=== PATIENT | female | born 1955 | race Two or more races ===

== ENCOUNTER 2024-09-19 15:23 | Inpatient (IN) | payer MEDICARE, MEDICAID ==
[2024-09-19] VITALS (31 sets, daily range): BP systolic 63–106; BP diastolic 30–73; PULSE 94–159; RESP 13–32; TEMP 36.3–36.3624; O2SAT 95–100
[~2024-09-19] VITALS: Ht 157.5 cm; Wt 82.6 kg
[2024-09-19] MEDS: SODIUM CHLORIDE 0.9% (SEPSIS BOLUS) IV ONE (15:54)
[2024-09-19 16:02] LABS: BASOPHILS % 0.1 % (0.0-2.0); EOSINOPHILS % 0.1 % (0.0-5.0); HEMATOCRIT. 30.1 % (36.0-48.0); HEMOGLOBIN. 9.8 g/dL (12.0-16.0); LYMPHOCYTES % 4.9 % (20.0-50.0); MEAN PLATELET VOLUME 9.1 fl (7.4-10.4); MONOCYTES % 4.0 % (2.0-8.0); NEUTROPHILS % 90.9 % (40.0-76.0); RED BLOOD CELL COUNT 2.75 mill/uL (4.2-5.4); RED CELL DISTRIBUTION WIDTH 15.3 % (11.6-14.6)
[2024-09-19] MEDS: CEFTRIAXONE 1GM/50ML 50 ML IV ONE (16:07)
[2024-09-19 16:11] LABS: INR 1.2
[2024-09-19 16:18] LABS: ASPARTATE AMINOTRANSFERASE 10 IU/L (<34)
[2024-09-19 16:19] LABS: BILIRUBIN DIRECT 0.2 mg/dL (<=3.0); BILIRUBIN TOTAL 0.4 mg/dL (0.1-1.0); PROTEIN TOTAL 6.4 g/dL (6.0-8.3)
[2024-09-19 16:26] LABS: CREATININE 15.1 mg/dL (0.6-1.0)
[2024-09-19 16:27] LABS: TROPONIN I HIGH SENSITIVITY 412 ng/L (3.0-34)
[2024-09-19 16:29] LABS: UREA NITROGEN BLOOD 159 mg/dL (9-23)
[2024-09-19] MEDS: NOREPINEPHRINE 8MG/250ML PMX 250 ML IV ONE (17:34)
[2024-09-19] MEDS ORDERED: NOREPINEPHRINE 8MG/250ML PMX 250 ML IV PRN ×2 (17:45→20:15)
[2024-09-19] MEDS ORDERED: CLOPIDOGREL 75MG TABLET PO SCH (17:45)
[2024-09-19] MEDS ORDERED: ONDANSETRON HCL 4MG/2ML INJ IV PRN (18:00)
[2024-09-19] MEDS ORDERED: HYDROCODONE/ACETAMINOPHEN 5/325MG TABLET PO PRN (18:00)
[2024-09-19] MEDS ORDERED: ENOXAPARIN 40MG/0.4ML SYR SUBCUT SCH (18:00)
[2024-09-19] MEDS ORDERED: DEXTROSE 50% WATER 50ML SYRINGE IV PRN (18:00)
[2024-09-19] MEDS ORDERED: NALOXONE HCL 0.4MG/ML VIAL IV PRN ×2 (18:30→23:00)
[2024-09-19 18:38] LABS: TROPONIN I HIGH SENSITIVITY 338 ng/L (3.0-34)
[2024-09-19 18:39] LABS: CLARITY URINE CLOUDY (CLEAR); COLOR URINE YELLOW (YELLOW)
[2024-09-19 18:40] LABS: GLUCOSE URINE 1+ (NEGATIVE); KETONES URINE TRACE (NEGATIVE); PH URINE 5.0 (4.5-8.0); PROTEIN URINE 2+ (NEGATIVE); SPECIFIC GRAVITY URINE 1.022 (1.005-1.030)
[2024-09-19 18:41] LABS: LEUKOCYTE ESTERASE URINE 2+ (NEGATIVE); NITRITE URINE NEGATIVE (NEGATIVE); OCCULT BLOOD URINE 2+ (NEGATIVE); UROBILINOGEN URINE 0.2 E.U./dL (0.2-1.0)
[2024-09-19] MEDS: SODIUM BICARBONATE 8.4% 50MEQ/50ML SYR IV NR (19:05)
[2024-09-19] MEDS: ASPIRIN 81MG TABLET PO SCH (19:05)
[2024-09-19] MEDS: PIPERACILLIN/TAZO 3.375G/50ML 50 ML IV NR (19:06)
[2024-09-19] MEDS: SODIUM BICARBONATE 100 MEQ in SODIUM CHLORIDE 0.45% 900 ML IV SCH (19:06)
[2024-09-19 19:09] LABS: BACTERIA URINE TRACE; SQUAMOUS EPITHELIAL CELL URINE FEW /lpf (RARE/1+)
[2024-09-19] MEDS: PANTOPRAZOLE SODIUM 40 MG/VIAL IV SCH (19:15)
[2024-09-19] MEDS: SODIUM CHLORIDE 0.9% 1,000 ML IV SCH (20:29)
[2024-09-19] MEDS: NOREPINEPHRINE 8MG/250ML PMX 250 ML IV PRN (20:31)
[2024-09-19] MEDS: PHENYLEPHRINE 50MG/250ML PMX 250 ML IV PRN (20:41)
[2024-09-19] MEDS: BLOOD SUGAR DIAGNOSTIC STRIP TEST SCH (21:00)
[2024-09-19] MEDS: ENOXAPARIN 60MG/0.6ML SYR SUBCUT SCH (21:11)
[2024-09-19] MEDS: HYDROCORTISONE SOD SUCCINATE 100 MG/2 ML VIAL IV SCH (21:11)
[2024-09-19] MEDS: ATORVASTATIN CALCIUM 40MG TABLET PO SCH (21:11)
[2024-09-19] MEDS: INSULIN LISPRO 100 UNITS/ML SUBCUT SCH (21:25)
[2024-09-19 22:06] LABS: BG BASE EXCESS -20.5 mmol/L (-2.0-3.0); BG CARBOXYHEMOGLOBIN 0.7 % (0.5-1.5); BG DEOXYHEMOGLOBIN 5.1 % (0.0-5.0); BG FRACTION INSPIRED OXYGEN 21; BG HCO3 ACT 6.4 mmol/L (21.0-28.0); BG METHEMOGLOBIN 0.2 % (0.5-1.5); BG OXYGEN SATURATION 94.9 % (94.0-98.0); BG OXYHEMOGLOBIN 94.0 % (94.0-98.0); BG PCO2 18.7 mmHg (32.0-45.0); BG PH 7.153 (7.350-7.450); BG PO2 91.6 mmHg (83.0-108.0); BG SAMPLE SITE LEFT RADIAL; BG TOTAL HEMOGLOBIN 10.4 g/dL (12.0-16.0); BG VENT MODE ROOM AIR
[2024-09-19] MEDS: HYDROMORPHONE HCL/PF 1MG/ML INJ IV PRN (23:09)
[2024-09-20] VITALS (112 sets, daily range): BP systolic 65–169; BP diastolic 32–96; PULSE 92–145; RESP 0–36; TEMP 36.2–39.7; O2SAT 81–100
[2024-09-20] MEDS: NOREPINEPHRINE 32 MG in DEXT 5% WATER 218 ML IV PRN (00:14)
[2024-09-20 00:56] LABS: BG BASE EXCESS -23.0 mmol/L (-2.0-3.0); BG CARBOXYHEMOGLOBIN 0.3 % (0.5-1.5); BG DEOXYHEMOGLOBIN 0.5 % (0.0-5.0); BG FRACTION INSPIRED OXYGEN 100; BG HCO3 ACT 7.9 mmol/L (21.0-28.0); BG METHEMOGLOBIN 0.1 % (0.5-1.5); BG OXYGEN SATURATION 99.5 % (94.0-98.0); BG OXYHEMOGLOBIN 99.1 % (94.0-98.0); BG PCO2 37.0 mmHg (32.0-45.0); BG PEEP (cmH2O) 5.0 cmH2O; BG PH 6.949 (7.350-7.450); BG PO2 293.4 mmHg (83.0-108.0); BG SAMPLE SITE RIGHT RADIAL; BG TIDAL VOLUME(mL) 450.0 mL; BG TOTAL HEMOGLOBIN 10.0 g/dL (12.0-16.0); BG VENT MODE VENT - AC; BG VENT RATE 16.0 set
[2024-09-20] MEDS: EPINEPHRINE 10 MG in SODIUM CHLORIDE 0.9% 240 ML IV PRN (01:27)
[2024-09-20] MEDS: AMIODARONE 150MG/100ML D5W 100 ML IV NR (02:23)
[2024-09-20] MEDS: AMIODARONE 360MG/200ML 200 ML IV SCH (02:33)
[2024-09-20] MEDS: SODIUM BICARBONATE 8.4% 50MEQ/50ML SYR IV NR (02:39)
[2024-09-20] MEDS: CALCIUM GLUCONATE 1GM PREMIX 50 ML IV NR (02:39)
[2024-09-20] MEDS: SODIUM ZIRCONIUM CYCLOSILICATE 10GM/PACKET PO NR (02:40)
[2024-09-20] MEDS: INSULIN REGULAR (HUMULIN R) 1000UNITS/10ML VIAL IV NR (03:03)
[2024-09-20] MEDS: MAGNESIUM 1 G PREMIX 100 ML IV NR ×2 (03:31→04:41)
[2024-09-20 04:01] LABS: TROPONIN I HIGH SENSITIVITY 672 ng/L (3.0-34)
[2024-09-20] MEDS: DOPAMINE 400MG/250ML PREMIX 250 ML IV PRN (04:40)
[2024-09-20 06:18] LABS: HEMATOCRIT. 28.5 % (36.0-48.0); HEMOGLOBIN. 9.0 g/dL (12.0-16.0); MEAN PLATELET VOLUME 8.0 fl (7.4-10.4); RED BLOOD CELL COUNT 2.57 mill/uL (4.2-5.4); RED CELL DISTRIBUTION WIDTH 15.7 % (11.6-14.6)
[2024-09-20 06:38] LABS: CREATININE 11.3 mg/dL (0.6-1.0); TROPONIN I HIGH SENSITIVITY 1492.0 ng/L (3.0-34); UREA NITROGEN BLOOD 126.0 mg/dL (9-23)
[2024-09-20] MEDS: PHENYLEPHRINE 100 MG in DEXT 5% WATER 240 ML IV PRN (06:55)
[2024-09-20] MEDS: VASOPRESSIN 20 UNIT in SODIUM CHLORIDE 0.9% 99 ML IV PRN (06:55)
[2024-09-20 06:57] LABS: PLATELET 22 x1000/uL (130-400)
[2024-09-20] MEDS: EPINEPHRINE 20 MG in SODIUM CHLORIDE 0.9% 480 ML IV PRN (07:20)
[2024-09-20] MEDS: PIPERACILLIN/TAZO 3.375G/50ML 50 ML IV SCH (08:12)
[2024-09-20] MEDS ORDERED: CALCIUM GLUCONATE 1GM PREMIX 50 ML IV ONE (08:45)
[2024-09-20 08:52] LABS: BG BASE EXCESS -18.0 mmol/L (-2.0-3.0); BG CARBOXYHEMOGLOBIN 0.4 % (0.5-1.5); BG DEOXYHEMOGLOBIN 11.7 % (0.0-5.0); BG FRACTION INSPIRED OXYGEN 40; BG HCO3 ACT 10.0 mmol/L (21.0-28.0); BG METHEMOGLOBIN 0.1 % (0.5-1.5); BG OXYGEN SATURATION 88.2 % (94.0-98.0); BG OXYHEMOGLOBIN 87.8 % (94.0-98.0); BG PCO2 31.5 mmHg (32.0-45.0); BG PEEP (cmH2O) 5.0 cmH2O; BG PH 7.120 (7.350-7.450); BG PO2 68.6 mmHg (83.0-108.0); BG SAMPLE SITE LEFT RADIAL; BG TIDAL VOLUME(mL) 450.0 mL; BG TOTAL HEMOGLOBIN 9.5 g/dL (12.0-16.0); BG VENT MODE VENT - AC; BG VENT RATE 16.0 set
[2024-09-20] MEDS: IPRATROPIUM/ALBUTEROL 0.5-3(2.5)MG/3ML NEB NEB PRN (08:58)
[2024-09-20] MEDS ORDERED: CALCIUM CHLORIDE 1GM/10ML SYR IV SCH (09:00)
[2024-09-20] MEDS: SODIUM BICARBONATE 8.4% 50MEQ/50ML SYR IV SCH (09:02)
[2024-09-20] MEDS: DEXTROSE 50% WATER 50ML SYRINGE IV SCH (09:02)
[2024-09-20] MEDS: INSULIN REGULAR (HUMULIN R) 1000UNITS/10ML VIAL IV SCH (09:03)
[2024-09-20] MEDS: SODIUM POLYSTYRENE SULFONATE 15 G/60 ML BOT PO SCH (09:04)
[2024-09-20] MEDS: PROPOFOL 10MG/ML 100ML 100 ML IV SCH (09:49)
[2024-09-20] MEDS: CALCIUM GLUCONATE 1GM PREMIX 50 ML IV SCH (10:35)
[2024-09-20 10:36] LABS: CREATININE 10.8 mg/dL (0.6-1.0); UREA NITROGEN BLOOD 130.0 mg/dL (9-23)
[2024-09-20 11:56] LABS: BAND% 32.0 % (1.0-6.0); LYMPHOCYTES % MANUAL 8.0 % (20.0-60.0); METAMYELOCYTES % 6.0 % (0-0); MONOCYTES % MANUAL 9.0 % (2.0-8.0); MYELOCYTES % 1.0 % (0-0); NEUTROPHILS % MANUAL 44.0 % (45.0-75.0)
[2024-09-20 11:57] LABS: PLATELET ESTIMATE MARKEDLY DECREASED
[2024-09-20 12:27] LABS: PLATELET 47 x1000/uL (130-400)
[2024-09-20 13:35] LABS: TROPONIN I HIGH SENSITIVITY 5080 ng/L (3.0-34)
[2024-09-20 13:48] LABS: BG BASE EXCESS -14.4 mmol/L (-2.0-3.0); BG CARBOXYHEMOGLOBIN 0.6 % (0.5-1.5); BG DEOXYHEMOGLOBIN 6.7 % (0.0-5.0); BG FRACTION INSPIRED OXYGEN 60; BG HCO3 ACT 11.8 mmol/L (21.0-28.0); BG METHEMOGLOBIN 0.3 % (0.5-1.5); BG OXYGEN SATURATION 93.2 % (94.0-98.0); BG OXYHEMOGLOBIN 92.4 % (94.0-98.0); BG PCO2 28.6 mmHg (32.0-45.0); BG PEEP (cmH2O) 5.0 cmH2O; BG PH 7.234 (7.350-7.450); BG PO2 75.0 mmHg (83.0-108.0); BG SAMPLE SITE LEFT RADIAL; BG TIDAL VOLUME(mL) 450.0 mL; BG TOTAL HEMOGLOBIN 7.5 g/dL (12.0-16.0); BG VENT MODE VENT - AC; BG VENT RATE 28.0 set
[2024-09-20 15:54] LABS: UREA NITROGEN BLOOD 139.0 mg/dL (9-23)
[2024-09-20 15:55] LABS: CREATININE 10.2 mg/dL (0.6-1.0)
[2024-09-20 16:13] LABS: HEMATOCRIT. 21.8 % (36.0-48.0); HEMOGLOBIN. 7.4 g/dL (12.0-16.0); MEAN PLATELET VOLUME 7.7 fl (7.4-10.4); RED BLOOD CELL COUNT 2.08 mill/uL (4.2-5.4); RED CELL DISTRIBUTION WIDTH 14.5 % (11.6-14.6)
[2024-09-20 16:26] LABS: PLATELET 19 x1000/uL (130-400)
[2024-09-20] MEDS: VANCOMYCIN 1.25GM/250ML IV SCH (16:59)
[2024-09-20 17:21] LABS: BAND% 11.0 % (1.0-6.0); LYMPHOCYTES % MANUAL 12.0 % (20.0-60.0); MONOCYTES % MANUAL 4.0 % (2.0-8.0); NEUTROPHILS % MANUAL 73.0 % (45.0-75.0); PLATELET ESTIMATE MARKEDLY DECREASED
[2024-09-20] MEDS ORDERED: ASPI-867 MT (18:18)
[2024-09-20] MEDS ORDERED: CARV6.2548 MT (18:20)
[2024-09-20] MEDS ORDERED: ATOR-2 MT (18:20)
[2024-09-20] MEDS ORDERED: FURO40TA5 MT (18:21)
[2024-09-20] MEDS ORDERED: LOSA25TA26 MT (18:22)
[2024-09-20] MEDS ORDERED: LEVO50TA8 MT (18:22)
[2024-09-20] MEDS ORDERED: METF500S9 PO (18:23)
[2024-09-20] MEDS ORDERED: NIAC500T25 MT (18:24)
[2024-09-20] MEDS ORDERED: OMEP20CA14 MT (18:24)
[2024-09-20] MEDS ORDERED: POTA8CAP20 MT (18:25)
[2024-09-20] MEDS ORDERED: EMPA10TA MT (18:26)
[2024-09-20] MEDS: ACETAMINOPHEN 325MG TABLET PO PRN (20:19)
[2024-09-20 20:30] LABS: TROPONIN I HIGH SENSITIVITY 18747 ng/L (3.0-34)
[2024-09-21] VITALS (123 sets, daily range): BP systolic 71–166; BP diastolic 37–106; PULSE 24–109; RESP 19–35; TEMP 36.6–37.33632; O2SAT 93–100
[2024-09-21 07:15] LABS: TRIGLYCERIDE 209.0 mg/dL (0-150)
[2024-09-21 07:26] LABS: LACTATE DEHYDROGENASE 1834.0 IU/L (120-246)
[2024-09-21 08:44] LABS: CREATININE 10.0 mg/dL (0.6-1.0); UREA NITROGEN BLOOD 134.0 mg/dL (9-23)
[2024-09-21 10:38] LABS: BG DEOXYHEMOGLOBIN 49.6 % (0.0-5.0)
[2024-09-21 10:57] LABS: MEAN PLATELET VOLUME 10.5 fl (7.4-10.4); RED BLOOD CELL COUNT 1.86 mill/uL (4.2-5.4); RED CELL DISTRIBUTION WIDTH 14.3 % (11.6-14.6)
[2024-09-21 11:01] LABS: HEMATOCRIT. 19.4 % (36.0-48.0); PLATELET 38 x1000/uL (130-400)
[2024-09-21 11:05] LABS: HEMOGLOBIN. 6.7 g/dL (12.0-16.0)
[2024-09-21] MEDS: FENTANYL 2500MCG/250ML PMX 250 ML IV PRN (11:09)
[2024-09-21 11:37] LABS: BAND% 32.0 % (1.0-6.0); LYMPHOCYTES % MANUAL 7.0 % (20.0-60.0); METAMYELOCYTES % 2.0 % (0-0); MONOCYTES % MANUAL 2.0 % (2.0-8.0); MYELOCYTES % 1.0 % (0-0); NEUTROPHILS % MANUAL 56.0 % (45.0-75.0); NUCLEATED RED BLOOD CELLS 1 /100 WBC; PLATELET ESTIMATE MARKEDLY DECREASED
[2024-09-21] MEDS: PROPOFOL 10MG/ML 100ML 100 ML IV PRN (11:56)
[2024-09-21 15:52] LABS: RED BLOOD CELL COUNT 2.32 mill/uL (4.2-5.4); RED CELL DISTRIBUTION WIDTH 16.6 % (11.6-14.6)
[2024-09-21 16:01] LABS: INR 1.4
[2024-09-21 16:03] LABS: PLATELET 32 x1000/uL (130-400)
[2024-09-22] VITALS (110 sets, daily range): BP systolic 76–154; BP diastolic 36–92; PULSE 64–94; RESP 0–29; TEMP 36.8–37.1; O2SAT 92–100
[2024-09-22 07:09] LABS: HEMATOCRIT. 23.4 % (36.0-48.0); MEAN PLATELET VOLUME 9.2 fl (7.4-10.4); RED BLOOD CELL COUNT 2.42 mill/uL (4.2-5.4); RED CELL DISTRIBUTION WIDTH 18.0 % (11.6-14.6)
[2024-09-22 07:33] LABS: TRIGLYCERIDE 398 mg/dL (0-150)
[2024-09-22 07:55] LABS: UREA NITROGEN BLOOD 117 mg/dL (9-23)
[2024-09-22 07:56] LABS: CREATININE 8.4 mg/dL (0.6-1.0); HEMOGLOBIN. 8.3 g/dL (12.0-16.0)
[2024-09-22 07:58] LABS: PLATELET 27 x1000/uL (130-400)
[2024-09-22 09:26] LABS: BG DEOXYHEMOGLOBIN 29.8 % (0.0-5.0)
[2024-09-22] MEDS: POTASSIUM CHLORIDE 20MEQ/PACKET PO SCH (09:58)
[2024-09-22] MEDS: KCL 20MEQ/100ML PREMIX 100 ML IV ONE (09:58)
[2024-09-22 11:01] LABS: BAND% 14.0 % (1.0-6.0); LYMPHOCYTES % MANUAL 4.0 % (20.0-60.0); MONOCYTES % MANUAL 3.0 % (2.0-8.0); NEUTROPHILS % MANUAL 79.0 % (45.0-75.0); PLATELET ESTIMATE MARKEDLY DECREASED
[2024-09-22] MEDS: KCL 20MEQ/100ML PREMIX 100 ML IV SCH ×2 (11:59→16:52)
[2024-09-22] MEDS: POTASSIUM CHLORIDE 30 MEQ in DEXT 5%/0.9% NACL 1,000 ML IV SCH (15:04)
[2024-09-22 16:20] LABS: CREATININE 7.5 mg/dL (0.6-1.0); UREA NITROGEN BLOOD 121.0 mg/dL (9-23)
[2024-09-22 21:11] LABS: RED BLOOD CELL COUNT 2.44 mill/uL (4.2-5.4); RED CELL DISTRIBUTION WIDTH 17.5 % (11.6-14.6)
[2024-09-22 21:18] LABS: PLATELET 27 x1000/uL (130-400)
[2024-09-22] MEDS: PROPOFOL 10MG/ML 100ML 100 ML IV PRN (23:53)
[2024-09-23] VITALS (95 sets, daily range): BP systolic 83–136; BP diastolic 44–94; PULSE 48–116; RESP 10–23; TEMP 36.8–37.2; O2SAT 92–100
[2024-09-23 01:33] LABS: CREATININE 7.2 mg/dL (0.6-1.0); UREA NITROGEN BLOOD 123.0 mg/dL (9-23)
[2024-09-23] MEDS ORDERED: CALCIUM CHLORIDE 1GM/10ML SYR IV ONE (02:00)
[2024-09-23] MEDS: WATER IV NR (02:45)
[2024-09-23] MEDS: DEXT 5% IV NR (02:45)
[2024-09-23] MEDS: CALCIUM CHLORIDE IV NR (02:45)
[2024-09-23] MEDS: KCL 20MEQ/100ML PREMIX 100 ML IV SCH (02:45)
[2024-09-23 07:02] LABS: TRIGLYCERIDE 173 mg/dL (0-150)
[2024-09-23 07:04] LABS: PHOSPHORUS 7.0 mg/dL (2.5-4.9)
[2024-09-23 07:24] LABS: CREATININE 7.0 mg/dL (0.6-1.0); UREA NITROGEN BLOOD 113 mg/dL (9-23)
[2024-09-23] MEDS ORDERED: LIDOCAINE HCL 1% 10 MG/ML 10ML VIAL ONE (07:35)
[2024-09-23 08:57] LABS: HEMATOCRIT. 22.6 % (36.0-48.0); HEMOGLOBIN. 7.7 g/dL (12.0-16.0); MEAN PLATELET VOLUME 9.4 fl (7.4-10.4); RED BLOOD CELL COUNT 2.32 mill/uL (4.2-5.4); RED CELL DISTRIBUTION WIDTH 17.7 % (11.6-14.6)
[2024-09-23 09:08] LABS: PLATELET 26 x1000/uL (130-400)
[2024-09-23 09:17] LABS: BG BASE EXCESS 2.8 mmol/L (-2.0-3.0); BG CARBOXYHEMOGLOBIN 1.4 % (0.5-1.5); BG DEOXYHEMOGLOBIN 5.9 % (0.0-5.0); BG FRACTION INSPIRED OXYGEN 40; BG HCO3 ACT 25.6 mmol/L (21.0-28.0); BG METHEMOGLOBIN 0.4 % (0.5-1.5); BG OXYGEN SATURATION 94.0 % (94.0-98.0); BG OXYHEMOGLOBIN 92.3 % (94.0-98.0); BG PCO2 31.0 mmHg (32.0-45.0); BG PEEP (cmH2O) 5.0 cmH2O; BG PH 7.534 (7.350-7.450); BG PO2 69.9 mmHg (83.0-108.0); BG SAMPLE SITE RIGHT RADIAL; BG TIDAL VOLUME(mL) 450.0 mL; BG TOTAL HEMOGLOBIN 6.8 g/dL (12.0-16.0); BG VENT MODE VENT - AC; BG VENT RATE 18.0 set
[2024-09-23 10:19] LABS: BAND% 30.0 % (1.0-6.0); LYMPHOCYTES % MANUAL 1.0 % (20.0-60.0); METAMYELOCYTES % 2.0 % (0-0); MONOCYTES % MANUAL 4.0 % (2.0-8.0); NEUTROPHILS % MANUAL 63.0 % (45.0-75.0)
[2024-09-23 10:20] LABS: PLATELET ESTIMATE MS
[2024-09-23] MEDS: IPRATROPIUM/ALBUTEROL 0.5-3(2.5)MG/3ML NEB HHN SCH (12:48)
[2024-09-23] MEDS: VANCOMYCIN 750MG/150ML (BAXTER) IV SCH (14:05)
[2024-09-23] MEDS: PROPOFOL 10MG/ML 100ML 100 ML IV PRN (17:29)
[2024-09-24] VITALS (107 sets, daily range): BP systolic 84–153; BP diastolic 45–105; PULSE 81–142; RESP 13–24; TEMP 36.3–37.1; O2SAT 92–100
[2024-09-24 08:34] LABS: BG BASE EXCESS 5.2 mmol/L (-2.0-3.0); BG CARBOXYHEMOGLOBIN 1.7 % (0.5-1.5); BG DEOXYHEMOGLOBIN 4.3 % (0.0-5.0); BG FRACTION INSPIRED OXYGEN 40; BG HCO3 ACT 27.8 mmol/L (21.0-28.0); BG METHEMOGLOBIN 0.3 % (0.5-1.5); BG OXYGEN SATURATION 95.6 % (94.0-98.0); BG OXYHEMOGLOBIN 93.7 % (94.0-98.0); BG PCO2 32.6 mmHg (32.0-45.0); BG PEEP (cmH2O) 5.0 cmH2O; BG PH 7.549 (7.350-7.450); BG PO2 73.4 mmHg (83.0-108.0); BG SAMPLE SITE RIGHT RADIAL; BG TIDAL VOLUME(mL) 450.0 mL; BG TOTAL HEMOGLOBIN 7.6 g/dL (12.0-16.0); BG VENT MODE VENT - AC; BG VENT RATE 18.0 set
[2024-09-24] MEDS: HYDROCORTISONE SOD SUCCINATE 100 MG/2 ML VIAL IV SCH (13:08)
[2024-09-24 13:22] LABS: HEMATOCRIT. 25.6 % (36.0-48.0); HEMOGLOBIN. 8.7 g/dL (12.0-16.0); MEAN PLATELET VOLUME 9.7 fl (7.4-10.4); RED BLOOD CELL COUNT 2.70 mill/uL (4.2-5.4); RED CELL DISTRIBUTION WIDTH 17.1 % (11.6-14.6)
[2024-09-24 13:33] LABS: PLATELET 24 x1000/uL (130-400)
[2024-09-24 13:51] LABS: UREA NITROGEN BLOOD 114.0 mg/dL (9-23)
[2024-09-24 13:52] LABS: CREATININE 5.3 mg/dL (0.6-1.0)
[2024-09-24] MEDS: KCL 20MEQ/100ML PREMIX 100 ML IV SCH (14:15)
[2024-09-24 17:22] LABS: LYMPHOCYTES % MANUAL 1.0 % (20.0-60.0); MONOCYTES % MANUAL 5.0 % (2.0-8.0); NEUTROPHILS % MANUAL 94.0 % (45.0-75.0); PLATELET ESTIMATE MARKEDLY DECREASED
[2024-09-24] MEDS ORDERED: PROPOFOL 10MG/ML 100ML 100 ML IV PRN (18:30)
[2024-09-24] MEDS ORDERED: MIDAZOLAM 100MG/100ML PMX 100 ML IV PRN (22:30)
[2024-09-24] MEDS: MIDAZOLAM 100MG/100ML PMX 100 ML IV PRN (22:56)
[2024-09-25] VITALS (99 sets, daily range): BP systolic 91–139; BP diastolic 47–75; PULSE 98–140; RESP 16–28; TEMP 36.9–37.8; O2SAT 65–100
[2024-09-25] MEDS: BLOOD SUGAR DIAGNOSTIC STRIP TEST SCH
[2024-09-25] MEDS: INSULIN LISPRO 100 UNITS/ML SUBCUT SCH (01:09)
[2024-09-25] MEDS: MIDAZOLAM 100MG/100ML PMX 100 ML IV PRN (03:16)
[2024-09-25 05:46] LABS: HEMATOCRIT. 24.0 % (36.0-48.0); HEMOGLOBIN. 8.4 g/dL (12.0-16.0); MEAN PLATELET VOLUME 8.4 fl (7.4-10.4); RED BLOOD CELL COUNT 2.53 mill/uL (4.2-5.4); RED CELL DISTRIBUTION WIDTH 16.9 % (11.6-14.6)
[2024-09-25 05:58] LABS: CREATININE 4.4 mg/dL (0.6-1.0); TRIGLYCERIDE 162 mg/dL (0-150)
[2024-09-25 06:00] LABS: ASPARTATE AMINOTRANSFERASE 96 IU/L (<34); BILIRUBIN DIRECT 0.4 mg/dL (<=3.0); BILIRUBIN TOTAL 0.8 mg/dL (0.1-1.0); FOLIC ACID (FOLATE) SERUM 13.92 ng/mL (>5.38); PROTEIN TOTAL 4.7 g/dL (6.0-8.3)
[2024-09-25 06:01] LABS: PLATELET 20 x1000/uL (130-400)
[2024-09-25 06:13] LABS: UREA NITROGEN BLOOD 113 mg/dL (9-23)
[2024-09-25 06:32] LABS: HEPATITIS A AB IGM NEGATIVE (Negative); HEPATITIS B CORE AB IGM NEGATIVE (Negative)
[2024-09-25 06:33] LABS: HEPATITIS C AB NON REACTIVE (Neg) (Negative)
[2024-09-25 07:01] LABS: VITAMIN B12 SERUM > 2000 pg/mL (211-911)
[2024-09-25 07:28] LABS: LYMPHOCYTES % MANUAL 1.0 % (20.0-60.0); MONOCYTES % MANUAL 13.0 % (2.0-8.0); NEUTROPHILS % MANUAL 86.0 % (45.0-75.0)
[2024-09-25 07:29] LABS: PLATELET ESTIMATE MARKEDLY DECREASED
[2024-09-25] MEDS: DEXTROSE 5% WATER 1,000 ML IV SCH (07:42)
[2024-09-25] MEDS: KCL 20MEQ/100ML PREMIX 100 ML IV SCH ×2 (07:42→18:08)
[2024-09-25] MEDS: INSULIN GLARGINE 100 UNITS/ML SUBCUT SCH (10:54)
[2024-09-25 11:52] LABS: BG FRACTION INSPIRED OXYGEN 35; BG PEEP (cmH2O) 5 cmH2O; BG SAMPLE SITE RIGHT RADIAL; BG TIDAL VOLUME(mL) 475 mL; BG VENT MODE AC; BG VENT RATE 18 set
[2024-09-25 11:53] LABS: BG BASE EXCESS 8.4 mmol/L (-2.0-3.0); BG HCO3 ACT 31.6 mmol/L (21.0-28.0); BG PCO2 37.0 mmHg (32.0-45.0); BG PH 7.549 (7.350-7.450); BG PO2 91.3 mmHg (83.0-108.0); BG TOTAL HEMOGLOBIN 6.1 g/dL (12.0-16.0)
[2024-09-25 11:54] LABS: BG CARBOXYHEMOGLOBIN 1.6 % (0.5-1.5); BG DEOXYHEMOGLOBIN 2.7 % (0.0-5.0); BG METHEMOGLOBIN 0.3 % (0.5-1.5); BG OXYGEN SATURATION 97.2 % (94.0-98.0); BG OXYHEMOGLOBIN 95.4 % (94.0-98.0)
[2024-09-25 12:46] LABS: HEMATOCRIT. 22.5 % (36.0-48.0); HEMOGLOBIN. 7.7 g/dL (12.0-16.0); MEAN PLATELET VOLUME 8.2 fl (7.4-10.4); RED BLOOD CELL COUNT 2.35 mill/uL (4.2-5.4); RED CELL DISTRIBUTION WIDTH 17.1 % (11.6-14.6)
[2024-09-25 13:01] LABS: PLATELET 16 x1000/uL (130-400)
[2024-09-25] MEDS: HYDROCORTISONE SOD SUCCINATE 100 MG/2 ML VIAL IV SCH (13:24)
[2024-09-25 14:07] LABS: BAND% 2.0 % (1.0-6.0); LYMPHOCYTES % MANUAL 4.0 % (20.0-60.0); MONOCYTES % MANUAL 4.0 % (2.0-8.0); NEUTROPHILS % MANUAL 90.0 % (45.0-75.0); PLATELET ESTIMATE MARKEDLY DECREASED
[2024-09-25] MEDS: VANCOMYCIN 750MG/150ML (BAXTER) IV SCH (14:28)
[2024-09-25 17:04] LABS: CREATININE 3.4 mg/dL (0.6-1.0); UREA NITROGEN BLOOD 97.0 mg/dL (9-23)
[2024-09-25] MEDS: POTASSIUM CHLORIDE 20MEQ/PACKET PO SCH (18:09)
[2024-09-25] MEDS: FENTANYL 2500MCG/250ML PMX 250 ML IV PRN (18:09)
[2024-09-25] MEDS: SODIUM CHLORIDE 0.45% 1,000 ML IV SCH (18:10)
[2024-09-25 19:27] LABS: INR 1.0
[2024-09-26] VITALS (101 sets, daily range): BP systolic 89–128; BP diastolic 51–101; PULSE 106–130; RESP 17–25; TEMP 36.7–37.2; O2SAT 95–100
[2024-09-26 06:55] LABS: CREATININE 3.2 mg/dL (0.6-1.0)
[2024-09-26 06:57] LABS: PHOSPHORUS 5.0 mg/dL (2.5-4.9)
[2024-09-26 08:12] LABS: UREA NITROGEN BLOOD 107 mg/dL (9-23)
[2024-09-26 10:03] LABS: BG BASE EXCESS 7.1 mmol/L (-2.0-3.0); BG CARBOXYHEMOGLOBIN 0.5 % (0.5-1.5); BG DEOXYHEMOGLOBIN 5.3 % (0.0-5.0); BG FRACTION INSPIRED OXYGEN 35; BG HCO3 ACT 30.2 mmol/L (21.0-28.0); BG METHEMOGLOBIN 0.3 % (0.5-1.5); BG OXYGEN SATURATION 94.7 % (94.0-98.0); BG OXYHEMOGLOBIN 93.9 % (94.0-98.0); BG PCO2 36.3 mmHg (32.0-45.0); BG PEEP (cmH2O) 5.0 cmH2O; BG PH 7.538 (7.350-7.450); BG PO2 71.5 mmHg (83.0-108.0); BG SAMPLE SITE RIGHT RADIAL; BG TIDAL VOLUME(mL) 475.0 mL; BG TOTAL HEMOGLOBIN 8.1 g/dL (12.0-16.0); BG VENT MODE VENT - AC; BG VENT RATE 18.0 set
[2024-09-26 11:59] LABS: HEMATOCRIT. 22.2 % (36.0-48.0); HEMOGLOBIN. 7.6 g/dL (12.0-16.0); MEAN PLATELET VOLUME 11.1 fl (7.4-10.4); RED BLOOD CELL COUNT 2.29 mill/uL (4.2-5.4); RED CELL DISTRIBUTION WIDTH 16.5 % (11.6-14.6)
[2024-09-26 12:27] LABS: PLATELET 25 x1000/uL (130-400)
[2024-09-26 14:03] LABS: BAND% 6.0 % (1.0-6.0); LYMPHOCYTES % MANUAL 1.0 % (20.0-60.0); MONOCYTES % MANUAL 13.0 % (2.0-8.0); NEUTROPHILS % MANUAL 80.0 % (45.0-75.0); PLATELET ESTIMATE MARKEDLY DECREASED
[2024-09-27] VITALS (107 sets, daily range): BP systolic 82–139; BP diastolic 35–119; PULSE 85–122; RESP 16–29; TEMP 36.78072–37.2; O2SAT 92–100
[2024-09-27] MEDS: DEXMEDETOMIDINE 400 MCG/100 ML 100 ML IV PRN (04:28)
[2024-09-27 06:19] LABS: MEAN PLATELET VOLUME 11.1 fl (7.4-10.4); RED BLOOD CELL COUNT 1.91 mill/uL (4.2-5.4); RED CELL DISTRIBUTION WIDTH 16.8 % (11.6-14.6)
[2024-09-27 06:24] LABS: HEMATOCRIT. 18.5 % (36.0-48.0); HEMOGLOBIN. 6.2 g/dL (12.0-16.0)
[2024-09-27 07:02] LABS: UREA NITROGEN BLOOD 89.0 mg/dL (9-23)
[2024-09-27 07:12] LABS: CREATININE 2.2 mg/dL (0.6-1.0)
[2024-09-27 09:47] LABS: BG BASE EXCESS 7.4 mmol/L (-2.0-3.0); BG CARBOXYHEMOGLOBIN 1.5 % (0.5-1.5); BG DEOXYHEMOGLOBIN 7.7 % (0.0-5.0); BG FRACTION INSPIRED OXYGEN 35; BG HCO3 ACT 30.5 mmol/L (21.0-28.0); BG METHEMOGLOBIN 0.5 % (0.5-1.5); BG OXYGEN SATURATION 92.1 % (94.0-98.0); BG OXYHEMOGLOBIN 90.3 % (94.0-98.0); BG PCO2 36.2 mmHg (32.0-45.0); BG PEEP (cmH2O) 5.0 cmH2O; BG PH 7.544 (7.350-7.450); BG PO2 63.5 mmHg (83.0-108.0); BG SAMPLE SITE RIGHT RADIAL; BG TIDAL VOLUME(mL) 475.0 mL; BG TOTAL HEMOGLOBIN 5.6 g/dL (12.0-16.0); BG VENT MODE VENT - AC; BG VENT RATE 18.0 set
[2024-09-27 09:48] LABS: BAND% 27.0 % (1.0-6.0); LYMPHOCYTES % MANUAL 3.0 % (20.0-60.0); MONOCYTES % MANUAL 12.0 % (2.0-8.0); NEUTROPHILS % MANUAL 58.0 % (45.0-75.0); NUCLEATED RED BLOOD CELLS 1 /100 WBC; PLATELET ESTIMATE MARKEDLY DECREASED
[2024-09-27 09:49] LABS: PLATELET 28 x1000/uL (130-400)
[2024-09-27] MEDS: KCL 20MEQ/100ML PREMIX 100 ML IV SCH (11:00)
[2024-09-27 20:50] LABS: CREATININE 2.0 mg/dL (0.6-1.0)
[2024-09-27 20:51] LABS: UREA NITROGEN BLOOD 78.0 mg/dL (9-23)
[2024-09-28] VITALS (105 sets, daily range): BP systolic 57–141; BP diastolic 31–104; PULSE 79–159; RESP 15–32; TEMP 36.7–37.2; O2SAT 96–100
[2024-09-28 06:37] LABS: HEMATOCRIT. 22.7 % (36.0-48.0); HEMOGLOBIN. 7.7 g/dL (12.0-16.0); MEAN PLATELET VOLUME 10.0 fl (7.4-10.4); RED BLOOD CELL COUNT 2.41 mill/uL (4.2-5.4); RED CELL DISTRIBUTION WIDTH 17.8 % (11.6-14.6)
[2024-09-28] MEDS: QUETIAPINE FUMARATE 50MG TABLET PO SCH (06:42)
[2024-09-28 06:53] LABS: CREATININE 1.9 mg/dL (0.6-1.0); PLATELET 27 x1000/uL (130-400); UREA NITROGEN BLOOD 85.0 mg/dL (9-23)
[2024-09-28 08:10] LABS: BG BASE EXCESS 3.9 mmol/L (-2.0-3.0); BG CARBOXYHEMOGLOBIN 0.8 % (0.5-1.5); BG DEOXYHEMOGLOBIN 4.0 % (0.0-5.0); BG FRACTION INSPIRED OXYGEN 40; BG HCO3 ACT 27.3 mmol/L (21.0-28.0); BG METHEMOGLOBIN 0.2 % (0.5-1.5); BG OXYGEN SATURATION 96.0 % (94.0-98.0); BG OXYHEMOGLOBIN 95.0 % (94.0-98.0); BG PCO2 36.0 mmHg (32.0-45.0); BG PEEP (cmH2O) 5.0 cmH2O; BG PH 7.498 (7.350-7.450); BG PO2 82.6 mmHg (83.0-108.0); BG SAMPLE SITE RIGHT RADIAL; BG TIDAL VOLUME(mL) 400.0 mL; BG TOTAL HEMOGLOBIN 8.4 g/dL (12.0-16.0); BG VENT MODE VENT - AC; BG VENT RATE 18.0 set
[2024-09-28 08:37] LABS: BAND% 27.0 % (1.0-6.0); LYMPHOCYTES % MANUAL 5.0 % (20.0-60.0); METAMYELOCYTES % 3.0 % (0-0); MONOCYTES % MANUAL 8.0 % (2.0-8.0); NEUTROPHILS % MANUAL 57.0 % (45.0-75.0); NUCLEATED RED BLOOD CELLS 3 /100 WBC; PLATELET ESTIMATE MARKEDLY DECREASED
[2024-09-28] MEDS: FUROSEMIDE 40MG/4ML VIAL IVP SCH (09:37)
[2024-09-28] MEDS: POTASSIUM CHLORIDE 20MEQ/PACKET NG SCH (09:37)
[2024-09-28] MEDS: DEXTROSE 5% WATER 1,000 ML IV ONE (09:37)
[2024-09-28] MEDS: QUETIAPINE FUMARATE 25MG TABLET PO SCH (21:21)
[2024-09-29] VITALS (87 sets, daily range): BP systolic 108–137; BP diastolic 49–72; PULSE 76–132; RESP 14–26; TEMP 36.8–37.2; O2SAT 89–100
[2024-09-29 06:41] LABS: HEMATOCRIT. 21.9 % (36.0-48.0); HEMOGLOBIN. 7.3 g/dL (12.0-16.0); MEAN PLATELET VOLUME 10.7 fl (7.4-10.4); RED BLOOD CELL COUNT 2.30 mill/uL (4.2-5.4); RED CELL DISTRIBUTION WIDTH 16.8 % (11.6-14.6)
[2024-09-29 07:01] LABS: PLATELET 31 x1000/uL (130-400)
[2024-09-29 07:05] LABS: CREATININE 1.7 mg/dL (0.6-1.0); UREA NITROGEN BLOOD 87 mg/dL (9-23)
[2024-09-29 09:03] LABS: BAND% 16.0 % (1.0-6.0); LYMPHOCYTES % MANUAL 2.0 % (20.0-60.0); MONOCYTES % MANUAL 5.0 % (2.0-8.0); MYELOCYTES % 1.0 % (0-0); NEUTROPHILS % MANUAL 76.0 % (45.0-75.0); NUCLEATED RED BLOOD CELLS 1 /100 WBC; PLATELET ESTIMATE MARKEDLY DECREASED
[2024-09-29] MEDS: POTASSIUM CHLORIDE 20MEQ/PACKET NG SCH (09:08)
[2024-09-29] MEDS: METOLAZONE 2.5MG TABLET NG SCH (09:08)
[2024-09-29] MEDS: DEXTROSE 5% WATER 1,000 ML IV SCH (09:08)
[2024-09-29 09:29] LABS: BG BASE EXCESS 4.6 mmol/L (-2.0-3.0); BG CARBOXYHEMOGLOBIN 1.8 % (0.5-1.5); BG DEOXYHEMOGLOBIN 3.7 % (0.0-5.0); BG FRACTION INSPIRED OXYGEN 40; BG HCO3 ACT 28.1 mmol/L (21.0-28.0); BG METHEMOGLOBIN 0.2 % (0.5-1.5); BG OXYGEN SATURATION 96.2 % (94.0-98.0); BG OXYHEMOGLOBIN 94.3 % (94.0-98.0); BG PCO2 36.6 mmHg (32.0-45.0); BG PEEP (cmH2O) 5.0 cmH2O; BG PH 7.503 (7.350-7.450); BG PO2 80.8 mmHg (83.0-108.0); BG SAMPLE SITE RIGHT RADIAL; BG TIDAL VOLUME(mL) 400.0 mL; BG TOTAL HEMOGLOBIN 7.5 g/dL (12.0-16.0); BG VENT MODE VENT - AC; BG VENT RATE 18.0 set
[2024-09-29] MEDS: FENTANYL CITRATE/PF 2,500 MCG in SODIUM CHLORIDE 0.9% 200 ML IV PRN (12:14)
[2024-09-29] MEDS: POTASSIUM CHLORIDE 20MEQ/PACKET PO NR (22:48)
[2024-09-30] VITALS (103 sets, daily range): BP systolic 101–144; BP diastolic 44–72; PULSE 80–121; RESP 13–28; TEMP 36.8–37; O2SAT 90–100
[2024-09-30 06:11] LABS: HEMATOCRIT. 21.7 % (36.0-48.0); HEMOGLOBIN. 7.4 g/dL (12.0-16.0); MEAN PLATELET VOLUME 10.8 fl (7.4-10.4); RED BLOOD CELL COUNT 2.29 mill/uL (4.2-5.4); RED CELL DISTRIBUTION WIDTH 16.5 % (11.6-14.6)
[2024-09-30 06:32] LABS: CREATININE 1.6 mg/dL (0.6-1.0); UREA NITROGEN BLOOD 87 mg/dL (9-23)
[2024-09-30 06:49] LABS: PLATELET 31 x1000/uL (130-400)
[2024-09-30] MEDS ORDERED: POTASSIUM CHLORIDE 40 MEQ in DEXT 5% WATER 230 ML IV ONE (07:45)
[2024-09-30] MEDS ORDERED: KCL 20MEQ/100ML PREMIX 100 ML IV ONE (07:45)
[2024-09-30] MEDS: MAGNESIUM 2 G PREMIX 50 ML IV SCH (08:41)
[2024-09-30] MEDS: KCL 20MEQ/100ML X 2 FOR TOTAL KCL 40MEQ/200ML IV SCH (08:42)
[2024-09-30] MEDS: POTASSIUM CHLORIDE 20MEQ/PACKET PO SCH (08:42)
[2024-09-30 08:43] LABS: BG BASE EXCESS 6.1 mmol/L (-2.0-3.0); BG CARBOXYHEMOGLOBIN 1.2 % (0.5-1.5); BG DEOXYHEMOGLOBIN 5.7 % (0.0-5.0); BG FRACTION INSPIRED OXYGEN 30; BG HCO3 ACT 29.0 mmol/L (21.0-28.0); BG METHEMOGLOBIN 0.3 % (0.5-1.5); BG OXYGEN SATURATION 94.2 % (94.0-98.0); BG OXYHEMOGLOBIN 92.8 % (94.0-98.0); BG PCO2 34.6 mmHg (32.0-45.0); BG PEEP (cmH2O) 5.0 cmH2O; BG PH 7.541 (7.350-7.450); BG PO2 67.9 mmHg (83.0-108.0); BG SAMPLE SITE RIGHT RADIAL; BG TIDAL VOLUME(mL) 350.0 mL; BG TOTAL HEMOGLOBIN 7.8 g/dL (12.0-16.0); BG VENT MODE VENT - AC; BG VENT RATE 16.0 set
[2024-09-30] MEDS: DEXTROSE 5% WATER 1,000 ML IV SCH (08:45)
[2024-09-30 14:36] LABS: BG BASE EXCESS 5.6 mmol/L (-2.0-3.0); BG CARBOXYHEMOGLOBIN 0.9 % (0.5-1.5); BG DEOXYHEMOGLOBIN 6.1 % (0.0-5.0); BG FRACTION INSPIRED OXYGEN 30; BG HCO3 ACT 28.3 mmol/L (21.0-28.0); BG METHEMOGLOBIN 0.0 % (0.5-1.5); BG OXYGEN SATURATION 93.8 % (94.0-98.0); BG OXYHEMOGLOBIN 93.0 % (94.0-98.0); BG PCO2 32.6 mmHg (32.0-45.0); BG PEEP (cmH2O) 5.0 cmH2O; BG PH 7.556 (7.350-7.450); BG PO2 66.4 mmHg (83.0-108.0); BG SAMPLE SITE RIGHT RADIAL; BG TIDAL VOLUME(mL) 350.0 mL; BG TOTAL HEMOGLOBIN 7.2 g/dL (12.0-16.0); BG TOTAL RESPIRATORY RATE 20 b/min; BG VENT MODE VENT - SIMV; BG VENT RATE 14.0 set
[2024-09-30] MEDS ORDERED: POTASSIUM CHLORIDE 20 MEQ in DEXT 5% WATER 90 ML IV ONE (15:45)
[2024-09-30 15:46] LABS: CREATININE 1.5 mg/dL (0.6-1.0); UREA NITROGEN BLOOD 83.0 mg/dL (9-23)
[2024-09-30 17:27] LABS: BAND% 2.0 % (1.0-6.0); LYMPHOCYTES % MANUAL 1.0 % (20.0-60.0); METAMYELOCYTES % 2.0 % (0-0); MONOCYTES % MANUAL 1.0 % (2.0-8.0); NEUTROPHILS % MANUAL 94.0 % (45.0-75.0); NUCLEATED RED BLOOD CELLS 3 /100 WBC; PLATELET ESTIMATE DECREASED
[2024-09-30] MEDS: KCL 20MEQ/100ML PREMIX 100 ML IV SCH (17:33)
[2024-10-01] VITALS (81 sets, daily range): BP systolic 96–137; BP diastolic 46–87; PULSE 74–208; RESP 16–35; TEMP 36.61404–37.5; O2SAT 95–100
[2024-10-01 07:02] LABS: CREATININE 1.3 mg/dL (0.6-1.0); UREA NITROGEN BLOOD 73.0 mg/dL (9-23)
[2024-10-01] MEDS: KCL 20MEQ/100ML PREMIX 100 ML IV SCH ×2 (08:47→16:06)
[2024-10-01] MEDS: DEXTROSE 5% WATER 1,000 ML IV SCH (08:58)
[2024-10-01 10:26] LABS: BG BASE EXCESS 7.2 mmol/L (-2.0-3.0); BG CARBOXYHEMOGLOBIN 2.2 % (0.5-1.5); BG DEOXYHEMOGLOBIN 2.3 % (0.0-5.0); BG FRACTION INSPIRED OXYGEN 30; BG HCO3 ACT 29.6 mmol/L (21.0-28.0); BG METHEMOGLOBIN 0.4 % (0.5-1.5); BG OXYGEN SATURATION 97.6 % (94.0-98.0); BG OXYHEMOGLOBIN 95.1 % (94.0-98.0); BG PCO2 32.5 mmHg (32.0-45.0); BG PEEP (cmH2O) 5.0 cmH2O; BG PH 7.578 (7.350-7.450); BG PO2 97.2 mmHg (83.0-108.0); BG SAMPLE SITE LEFT RADIAL; BG TIDAL VOLUME(mL) 350.0 mL; BG TOTAL HEMOGLOBIN 6.9 g/dL (12.0-16.0); BG VENT MODE VENT - SIMV; BG VENT RATE 14.0 set
[2024-10-01 11:51] LABS: PHOSPHORUS 2.8 mg/dL (2.5-4.9)
[2024-10-01] MEDS: MAGNESIUM 2 G PREMIX 50 ML IV SCH (14:07)
[2024-10-01 14:15] LABS: BG BASE EXCESS 6.8 mmol/L (-2.0-3.0); BG CARBOXYHEMOGLOBIN 1.0 % (0.5-1.5); BG DEOXYHEMOGLOBIN 4.8 % (0.0-5.0); BG FRACTION INSPIRED OXYGEN 30; BG HCO3 ACT 29.4 mmol/L (21.0-28.0); BG METHEMOGLOBIN 0.3 % (0.5-1.5); BG OXYGEN SATURATION 95.1 % (94.0-98.0); BG OXYHEMOGLOBIN 93.9 % (94.0-98.0); BG PCO2 33.7 mmHg (32.0-45.0); BG PEEP (cmH2O) 5.0 cmH2O; BG PH 7.559 (7.350-7.450); BG PO2 71.4 mmHg (83.0-108.0); BG SAMPLE SITE LEFT RADIAL; BG TOTAL HEMOGLOBIN 8.4 g/dL (12.0-16.0); BG VENT MODE VENT - CPAP
[2024-10-01 14:52] LABS: CREATININE 1.2 mg/dL (0.6-1.0); UREA NITROGEN BLOOD 54.0 mg/dL (9-23)
[2024-10-01 17:32] LABS: RED BLOOD CELL COUNT 2.73 mill/uL (4.2-5.4); RED CELL DISTRIBUTION WIDTH 17.6 % (11.6-14.6)
[2024-10-01 17:41] LABS: PLATELET 15 x1000/uL (130-400)
[2024-10-01] MEDS: PANTOPRAZOLE SODIUM 40 MG/VIAL IV SCH (20:18)
[2024-10-01 23:52] LABS: CREATININE 1.2 mg/dL (0.6-1.0); UREA NITROGEN BLOOD 70 mg/dL (9-23)
[2024-10-01 23:55] LABS: PHOSPHORUS 3.1 mg/dL (2.5-4.9)
[2024-10-02] VITALS (70 sets, daily range): BP systolic 68–151; BP diastolic 34–81; PULSE 53–122; RESP 10–31; TEMP 36.6696–38.94756; O2SAT 97–100
[2024-10-02] MEDS: FUROSEMIDE 40MG/4ML VIAL IVP SCH (00:59)
[2024-10-02] MEDS: POTASSIUM CHLORIDE 20MEQ/PACKET PO NR (02:37)
[2024-10-02] MEDS: CALCIUM GLUCONATE 100MG/ML 10ML VIAL IV NR (03:46)
[2024-10-02] MEDS: DEXMEDETOMIDINE 400 MCG/100 ML 100 ML IV PRN (04:00)
[2024-10-02 06:47] LABS: CREATININE 1.2 mg/dL (0.6-1.0); UREA NITROGEN BLOOD 62 mg/dL (9-23)
[2024-10-02 06:49] LABS: PHOSPHORUS 3.2 mg/dL (2.5-4.9)
[2024-10-02 08:11] LABS: RED BLOOD CELL COUNT 2.04 mill/uL (4.2-5.4); RED CELL DISTRIBUTION WIDTH 16.6 % (11.6-14.6)
[2024-10-02] MEDS: MAGNESIUM 2 G PREMIX 50 ML IV SCH (08:19)
[2024-10-02] MEDS: KCL 20MEQ/100ML PREMIX 100 ML IV SCH (08:19)
[2024-10-02 08:47] LABS: PLATELET 38 x1000/uL (130-400)
[2024-10-02 09:36] LABS: BG BASE EXCESS 8.8 mmol/L (-2.0-3.0); BG CARBOXYHEMOGLOBIN 2.3 % (0.5-1.5); BG DEOXYHEMOGLOBIN 0.4 % (0.0-5.0); BG FRACTION INSPIRED OXYGEN 30; BG HCO3 ACT 30.8 mmol/L (21.0-28.0); BG METHEMOGLOBIN 0.3 % (0.5-1.5); BG OXYGEN SATURATION 99.6 % (94.0-98.0); BG OXYHEMOGLOBIN 97.0 % (94.0-98.0); BG PCO2 29.4 mmHg (32.0-45.0); BG PEEP (cmH2O) 5.0 cmH2O; BG PH 7.638 (7.350-7.450); BG PO2 143.7 mmHg (83.0-108.0); BG SAMPLE SITE RIGHT RADIAL; BG TIDAL VOLUME(mL) 350.0 mL; BG TOTAL HEMOGLOBIN 4.4 g/dL (12.0-16.0); BG VENT MODE VENT - AC; BG VENT RATE 16.0 set
[2024-10-02] MEDS ORDERED: ROCURONIUM BROMIDE 10MG/ML VIAL 5ML IV ONE (11:16)
[2024-10-02] MEDS ORDERED: FENTANYL CITRATE/PF 50MCG/ML 2ML VIAL ONE (11:19)
[2024-10-02] MEDS ORDERED: ONDANSETRON HCL 4MG/2ML INJ ONE (11:20)
[2024-10-02] MEDS ORDERED: CEFAZOLIN SODIUM 1000MG/VIAL ONE (11:20)
[2024-10-02] MEDS ORDERED: ACETAMINOPHEN 1000MG/100ML 100 ML IV ONE (11:44)
[2024-10-02] MEDS: HYDROCORTISONE SOD SUCCINATE 100 MG/2 ML VIAL IV SCH (15:13)
[2024-10-02 17:04] LABS: BG BASE EXCESS 4.1 mmol/L (-2.0-3.0); BG CARBOXYHEMOGLOBIN 1.1 % (0.5-1.5); BG DEOXYHEMOGLOBIN 4.2 % (0.0-5.0); BG FRACTION INSPIRED OXYGEN 30; BG HCO3 ACT 27.5 mmol/L (21.0-28.0); BG METHEMOGLOBIN 0.3 % (0.5-1.5); BG OXYGEN SATURATION 95.7 % (94.0-98.0); BG OXYHEMOGLOBIN 94.4 % (94.0-98.0); BG PCO2 36.2 mmHg (32.0-45.0); BG PEEP (cmH2O) 5.0 cmH2O; BG PH 7.499 (7.350-7.450); BG PO2 81.3 mmHg (83.0-108.0); BG SAMPLE SITE RIGHT RADIAL; BG TIDAL VOLUME(mL) 350.0 mL; BG TOTAL HEMOGLOBIN 8.1 g/dL (12.0-16.0); BG VENT MODE VENT - AC; BG VENT RATE 14.0 set
[2024-10-02 17:05] LABS: CREATININE 1.1 mg/dL (0.6-1.0); UREA NITROGEN BLOOD 58 mg/dL (9-23)
[2024-10-03] VITALS (76 sets, daily range): BP systolic 95–128; BP diastolic 44–63; PULSE 53–81; RESP 12–21; TEMP 36.2–37.5; O2SAT 95–100
[2024-10-03 05:43] LABS: RED BLOOD CELL COUNT 3.43 mill/uL (4.2-5.4); RED CELL DISTRIBUTION WIDTH 15.6 % (11.6-14.6)
[2024-10-03 05:54] LABS: CREATININE 1.0 mg/dL (0.6-1.0); UREA NITROGEN BLOOD 53.0 mg/dL (9-23)
[2024-10-03 06:08] LABS: PLATELET 29 x1000/uL (130-400)
[2024-10-03] MEDS ORDERED: POTASSIUM CHLORIDE 40 MEQ in DEXT 5% WATER 230 ML IV ONE (08:45)
[2024-10-03] MEDS: KCL 20MEQ/100ML X 2 FOR TOTAL KCL 40MEQ/200ML IV SCH (08:54)
[2024-10-03] MEDS: DEXTROSE 5% WATER 1,000 ML IV SCH (10:00)
[2024-10-03 10:23] LABS: BG BASE EXCESS 2.8 mmol/L (-2.0-3.0); BG CARBOXYHEMOGLOBIN 1.1 % (0.5-1.5); BG DEOXYHEMOGLOBIN 9.8 % (0.0-5.0); BG FRACTION INSPIRED OXYGEN 30; BG HCO3 ACT 26.6 mmol/L (21.0-28.0); BG METHEMOGLOBIN 0.3 % (0.5-1.5); BG OXYGEN SATURATION 90.1 % (94.0-98.0); BG OXYHEMOGLOBIN 88.8 % (94.0-98.0); BG PCO2 38.1 mmHg (32.0-45.0); BG PEEP (cmH2O) 5.0 cmH2O; BG PH 7.462 (7.350-7.450); BG PO2 59.3 mmHg (83.0-108.0); BG SAMPLE SITE RIGHT RADIAL; BG TIDAL VOLUME(mL) 350.0 mL; BG TOTAL HEMOGLOBIN 11.5 g/dL (12.0-16.0); BG VENT MODE VENT - AC; BG VENT RATE 14.0 set
[2024-10-03 10:40] LABS: PHOSPHORUS 4.4 mg/dL (2.5-4.9)
[2024-10-03] MEDS: MAGNESIUM 2 G PREMIX 50 ML IV SCH (15:54)
[2024-10-04] VITALS (111 sets, daily range): BP systolic 112–149; BP diastolic 53–103; PULSE 55–77; RESP 13–22; TEMP 36.4–36.83628; O2SAT 97–100
[2024-10-04 00:52] LABS: RED BLOOD CELL COUNT 3.14 mill/uL (4.2-5.4); RED CELL DISTRIBUTION WIDTH 15.6 % (11.6-14.6)
[2024-10-04 01:01] LABS: PLATELET 25 x1000/uL (130-400)
[2024-10-04 06:44] LABS: RED BLOOD CELL COUNT 3.14 mill/uL (4.2-5.4); RED CELL DISTRIBUTION WIDTH 15.5 % (11.6-14.6)
[2024-10-04 06:53] LABS: INR 1.0
[2024-10-04 07:02] LABS: CREATININE 0.9 mg/dL (0.6-1.0)
[2024-10-04 07:03] LABS: UREA NITROGEN BLOOD 47 mg/dL (9-23)
[2024-10-04 07:05] LABS: PHOSPHORUS 4.4 mg/dL (2.5-4.9)
[2024-10-04] MEDS ORDERED: POTASSIUM CHLORIDE 40 MEQ in DEXT 5% WATER 230 ML IV ONE (07:30)
[2024-10-04 07:48] LABS: PLATELET 25 x1000/uL (130-400)
[2024-10-04] MEDS: KCL 20MEQ/100ML X 2 FOR TOTAL KCL 40MEQ/200ML IV SCH (08:20)
[2024-10-04] MEDS ORDERED: DEXTROSE 5% WATER 1,000 ML IV SCH (09:15)
[2024-10-04] MEDS ORDERED: CEFAZOLIN 1000MG PREMIX 50 ML IV PRN (16:00)
[2024-10-04] MEDS: HYDROCORTISONE SOD SUCCINATE 100 MG/2 ML VIAL IV SCH (17:03)
[2024-10-05] VITALS (87 sets, daily range): BP systolic 116–146; BP diastolic 52–112; PULSE 53–128; RESP 12–29; TEMP 36.4–36.8; O2SAT 91–100
[2024-10-05 06:08] LABS: RED BLOOD CELL COUNT 2.71 mill/uL (4.2-5.4); RED CELL DISTRIBUTION WIDTH 15.7 % (11.6-14.6)
[2024-10-05 06:18] LABS: PLATELET 30 x1000/uL (130-400)
[2024-10-05 06:42] LABS: CREATININE 0.8 mg/dL (0.6-1.0)
[2024-10-05 06:43] LABS: UREA NITROGEN BLOOD 36 mg/dL (9-23)
[2024-10-05] MEDS: KCL 20MEQ/100ML PREMIX 100 ML IV SCH ×2 (09:30→22:20)
[2024-10-05] MEDS: POTASSIUM CHLORIDE 20MEQ TABLET SR PO NR (09:30)
[2024-10-05] MEDS: ACETAMINOPHEN 325MG TABLET PO PRN (19:22)
[2024-10-05] MEDS: METOPROLOL TARTRATE 25MG TABLET PO SCH (19:22)
[2024-10-05] MEDS: SODIUM CHLORIDE 0.9% 500 ML IV ONE (20:29)
[2024-10-05] MEDS: FUROSEMIDE 40MG/4ML VIAL IVP SCH (22:02)
[2024-10-06] VITALS (92 sets, daily range): BP systolic 109–159; BP diastolic 15–86; PULSE 113–140; RESP 18–38; TEMP 36.7–38.3; O2SAT 91–100
[2024-10-06] MEDS: OLANZAPINE 10 MG/VIAL IM PRN (00:16)
[2024-10-06] MEDS: AMIODARONE 150MG/100ML D5W 100 ML IV NR (05:38)
[2024-10-06] MEDS: AMIODARONE 360MG/200ML 200 ML IV SCH (05:40)
[2024-10-06] MEDS: FUROSEMIDE 40MG/4ML VIAL IVP NR ×2 (05:45→06:56)
[2024-10-06 07:17] LABS: BASOPHILS % 0.1 % (0.0-2.0); CREATININE 0.7 mg/dL (0.6-1.0); EOSINOPHILS % 0.1 % (0.0-5.0); HEMATOCRIT. 31.3 % (36.0-48.0); HEMOGLOBIN. 10.4 g/dL (12.0-16.0); LYMPHOCYTES % 9.2 % (20.0-50.0); MEAN PLATELET VOLUME 11.0 fl (7.4-10.4); MONOCYTES % 3.1 % (2.0-8.0); NEUTROPHILS % 87.5 % (40.0-76.0); PLATELET 63 x1000/uL (130-400); RED BLOOD CELL COUNT 3.31 mill/uL (4.2-5.4); RED CELL DISTRIBUTION WIDTH 15.3 % (11.6-14.6); UREA NITROGEN BLOOD 34 mg/dL (9-23)
[2024-10-06 07:19] LABS: PHOSPHORUS 2.6 mg/dL (2.5-4.9)
[2024-10-06] MEDS: MAGNESIUM 2 G PREMIX 50 ML IV SCH (08:36)
[2024-10-06] MEDS: GUAIFENESIN 200MG/10ML SUGAR FREE UDC PO PRN (08:37)
[2024-10-06] MEDS: KCL 20MEQ/100ML PREMIX 100 ML IV SCH (09:51)
[2024-10-06] MEDS: FUROSEMIDE 40MG/4ML VIAL IVP SCH (10:25)
[2024-10-06] MEDS: DIGOXIN 500MCG/2ML AMP IV NR (10:26)
[2024-10-06] MEDS: DIGOXIN 125MCG TABLET PO SCH (17:36)
[2024-10-06] MEDS ORDERED: CEFEPIME 1GM IN DEXT 5% 50ML IV SCH (18:30)
[2024-10-06] MEDS: CEFEPIME 1GM/50ML 50 ML IV SCH (21:19)
[2024-10-06] MEDS: MELATONIN 3MG TABLET PO SCH (21:20)
[2024-10-07] VITALS (87 sets, daily range): BP systolic 100–160; BP diastolic 49–89; PULSE 85–169; RESP 13–34; TEMP 36.3–37.2; O2SAT 90–100
[2024-10-07] MEDS: DIGOXIN 500MCG/2ML AMP IV NR (01:05)
[2024-10-07] MEDS: AMIODARONE 150MG/100ML D5W 100 ML IV NR (01:06)
[2024-10-07] MEDS: FENTANYL 2500MCG/250ML PMX 250 ML IV SCH (02:08)
[2024-10-07 06:48] LABS: PLATELET 60 x1000/uL (130-400); RED BLOOD CELL COUNT 3.10 mill/uL (4.2-5.4); RED CELL DISTRIBUTION WIDTH 15.5 % (11.6-14.6)
[2024-10-07 07:03] LABS: CREATININE 0.7 mg/dL (0.6-1.0)
[2024-10-07 07:04] LABS: UREA NITROGEN BLOOD 36 mg/dL (9-23)
[2024-10-07 07:06] LABS: PHOSPHORUS 2.4 mg/dL (2.5-4.9)
[2024-10-07] MEDS ORDERED: POTASSIUM CHLORIDE 20 MEQ in DEXT 5% WATER 90 ML IV ONE (08:30)
[2024-10-07] MEDS: MULTIVITAMINS,THER W-MINERALS TABLET PO SCH (08:58)
[2024-10-07] MEDS: ASCORBIC ACID 500 MG TABLET PO SCH (08:59)
[2024-10-07] MEDS: KCL 20MEQ/100ML PREMIX 100 ML IV ONE (08:59)
[2024-10-07] MEDS: DEXT 5% WATER 500 ML IV ONE (09:11)
[2024-10-07] MEDS ORDERED: HYDROCORTISONE SOD SUCCINATE 100 MG/2 ML VIAL IV SCH (09:30)
[2024-10-07] MEDS ORDERED: FENTANYL 2500MCG/250ML PMX 250 ML IV PRN (10:00)
[2024-10-07] MEDS ORDERED: AMIODARONE HCL 150 MG in DEXT 5% WATER 100 ML IV ONE (11:15)
[2024-10-07] MEDS ORDERED: AMIODARONE HCL 900 MG in DEXT 5% WATER 482 ML IV SCH (11:15)
[2024-10-07] MEDS: AMIODARONE 150MG/100ML PREMIX IV SCH (11:19)
[2024-10-07] MEDS: HYDROCORTISONE SOD SUCCINATE 100 MG/2 ML VIAL IV SCH (11:24)
[2024-10-07] MEDS: AMIODARONE 360MG/200ML D5W PREMIX IV SCH (11:41)
[2024-10-07] MEDS: POTASSIUM PHOSPHATE 20 MMOL in DEXT 5% WATER 243.3333 ML IV ONE (12:30)
[2024-10-07] MEDS: AMIODARONE HCL 900 MG in DEXT 5% WATER 500 ML IV SCH (20:13)
[2024-10-07] MEDS: KCL 20MEQ/100ML PREMIX 100 ML IV SCH (21:45)
[2024-10-07] MEDS: DEXT 5%/0.45% NACL KCL 10MEQ/L 1,000 ML IV SCH (23:05)
[2024-10-08] VITALS (100 sets, daily range): BP systolic 105–160; BP diastolic 48–81; PULSE 80–125; RESP 7–29; TEMP 36.8–37.1; O2SAT 95–99
[2024-10-08 05:37] LABS: PLATELET 55 x1000/uL (130-400); RED BLOOD CELL COUNT 3.02 mill/uL (4.2-5.4); RED CELL DISTRIBUTION WIDTH 15.5 % (11.6-14.6)
[2024-10-08 05:58] LABS: CREATININE 0.7 mg/dL (0.6-1.0)
[2024-10-08 05:59] LABS: UREA NITROGEN BLOOD 36 mg/dL (9-23)
[2024-10-08] MEDS: KCL 20MEQ/100ML PREMIX 100 ML IV SCH (06:45)
[2024-10-08 06:56] LABS: PHOSPHORUS 3.0 mg/dL (2.5-4.9)
[2024-10-08] MEDS ORDERED: POTASSIUM CHLORIDE 40 MEQ in DEXT 5% WATER 230 ML IV ONE (07:15)
[2024-10-08] MEDS ORDERED: KCL 20MEQ/100ML X 2 FOR TOTAL KCL 40MEQ/200ML IV SCH (07:30)
[2024-10-08] MEDS: KCL 20MEQ/100ML X 2 FOR TOTAL KCL 40MEQ/200ML IV SCH (11:15)
[2024-10-08] MEDS: MAGNESIUM 2 G PREMIX 50 ML IV NR (13:18)
[2024-10-08] MEDS ORDERED: NALOXONE HCL 0.4MG/ML VIAL IV PRN (15:45)
[2024-10-08] MEDS: MORPHINE SULFATE 2 MG/ML INJ (NOT FOR IM USE) IV PRN (16:04)
[2024-10-08 18:41] LABS: CREATININE 0.7 mg/dL (0.6-1.0); UREA NITROGEN BLOOD 36 mg/dL (9-23)
[2024-10-08] MEDS: CEFEPIME 2GM/100ML 100 ML IV SCH (21:17)
[2024-10-09] VITALS (83 sets, daily range): BP systolic 101–163; BP diastolic 46–93; PULSE 79–123; RESP 10–45; TEMP 36.6696–37.3; O2SAT 95–100
[2024-10-09 06:35] LABS: RED BLOOD CELL COUNT 3.00 mill/uL (4.2-5.4); RED CELL DISTRIBUTION WIDTH 16.0 % (11.6-14.6)
[2024-10-09 06:41] LABS: PLATELET 48 x1000/uL (130-400)
[2024-10-09 06:42] LABS: INR 1.1
[2024-10-09 07:07] LABS: CREATININE 0.7 mg/dL (0.6-1.0); UREA NITROGEN BLOOD 34 mg/dL (9-23)
[2024-10-09 07:09] LABS: PHOSPHORUS 2.8 mg/dL (2.5-4.9)
[2024-10-10] VITALS (88 sets, daily range): BP systolic 98–155; BP diastolic 43–70; PULSE 84–114; RESP 13–30; TEMP 36.8–37.2; O2SAT 95–100
[2024-10-10 06:05] LABS: PLATELET 63 x1000/uL (130-400); RED BLOOD CELL COUNT 2.59 mill/uL (4.2-5.4); RED CELL DISTRIBUTION WIDTH 16.0 % (11.6-14.6)
[2024-10-10 06:30] LABS: CREATININE 0.7 mg/dL (0.6-1.0)
[2024-10-10 06:31] LABS: UREA NITROGEN BLOOD 33 mg/dL (9-23)
[2024-10-10 06:33] LABS: PHOSPHORUS 3.1 mg/dL (2.5-4.9)
[2024-10-10] MEDS: HYDROCORTISONE SOD SUCCINATE 100 MG/2 ML VIAL IV SCH (10:28)
[2024-10-10] MEDS: MICAFUNGIN 100MG in NORMAL SALINE 100ML IV SCH (15:48)
[2024-10-10] MEDS: SACUBITRIL/VALSARTAN 24MG/26MG TABLET PO SCH (20:39)
[2024-10-10] MEDS: CARVEDILOL 3.125 MG TABLET PO SCH (20:39)
[2024-10-11] VITALS (100 sets, daily range): BP systolic 80–131; BP diastolic 25–81; PULSE 86–103; RESP 16–29; TEMP 36.7–37.3; O2SAT 95–98
[2024-10-11 07:34] LABS: PLATELET 63 x1000/uL (130-400); RED BLOOD CELL COUNT 2.22 mill/uL (4.2-5.4); RED CELL DISTRIBUTION WIDTH 15.7 % (11.6-14.6)
[2024-10-11 07:41] LABS: CREATININE 0.8 mg/dL (0.6-1.0)
[2024-10-11 07:42] LABS: UREA NITROGEN BLOOD 39 mg/dL (9-23)
[2024-10-11 07:44] LABS: PHOSPHORUS 2.5 mg/dL (2.5-4.9)
[2024-10-11] MEDS: POTASSIUM CHLORIDE 20MEQ TABLET SR PO NR (08:33)
[2024-10-11] MEDS: KCL 20MEQ/100ML PREMIX 100 ML IV ONE ×2 (08:34→11:12)
[2024-10-11] MEDS: HYDROCORTISONE SOD SUCCINATE 100 MG/2 ML VIAL IV SCH (08:43)
[2024-10-11] MEDS: POTASSIUM CHLORIDE 20MEQ/PACKET NG NR (10:01)
[2024-10-11] MEDS: MAGNESIUM 4 G PREMIX 100 ML IV SCH (12:21)
[2024-10-11] MEDS: KCL 20MEQ/100ML PREMIX 100 ML IV SCH (13:23)
[2024-10-11] MEDS ORDERED: LANTUSUD SUBCUT (19:19)
[2024-10-11] MEDS ORDERED: SACU1TAB PO (19:19)
[2024-10-11] MEDS ORDERED: CEFE1FRO2 IV (19:19)
[2024-10-11] MEDS ORDERED: COR3 PO (19:19)
[2024-10-11] MEDS ORDERED: QUET25TA PO (19:19)
[2024-10-11] MEDS ORDERED: MICA100V3 IV (19:19)
[2024-10-11] MEDS ORDERED: FURO10VI3 IVP (19:19)
[2024-10-11] MEDS ORDERED: LOV60 SUBCUT (19:19)
[2024-10-12] VITALS (24 sets, daily range): BP systolic 95–125; BP diastolic 46–64; PULSE 76–96; RESP 18–26; TEMP 36.2–37.3; O2SAT 7–99
[2024-10-12] MEDS: POTASSIUM CHLORIDE 20MEQ/PACKET PO SCH (10:41)
== END 2024-10-12 21:30 | DRG 3 ==
LOC: ER 15:23 → EDBEDREQTM 16:51 → EDBEDREQ 16:51 → ENRESERV 17:27 → EDBEDREQSVC 17:30 → EDBEDREQTM 17:30 → ENRESERV 17:49 → 6WST 18:01 → CVICU 18:33 → 5EST 10-11 22:30
PROVIDERS: ADMIT Internal Medicine; ATTEND Internal Medicine
PROC: 5A1955Z Respiratory Ventilation, Greater than 96 Consecutive Hours (ICD-10-PCS; 2024-09-20)
PROC: 02HV33Z Insertion of Infusion Device into Superior Vena Cava, Percutaneous Approach (ICD-10-PCS; 2024-09-20)
PROC: B548ZZA Ultrasonography of Superior Vena Cava, Guidance (ICD-10-PCS; 2024-09-20)
PROC: 30233R1 Transfusion of Nonautologous Platelets into Peripheral Vein, Percutaneous Approach (ICD-10-PCS; 2024-09-20)
PROC: 0BH17EZ Insertion of Endotracheal Airway into Trachea, Via Natural or Artificial Opening (ICD-10-PCS; 2024-09-20)
PROC: 30233N1 Transfusion of Nonautologous Red Blood Cells into Peripheral Vein, Percutaneous Approach (ICD-10-PCS; 2024-09-21)
PROC: 02HV33Z Insertion of Infusion Device into Superior Vena Cava, Percutaneous Approach (ICD-10-PCS; 2024-09-23)
PROC: B548ZZA Ultrasonography of Superior Vena Cava, Guidance (ICD-10-PCS; 2024-09-23)
PROC: 0GBJ0ZZ Excision of Thyroid Gland Isthmus, Open Approach (ICD-10-PCS; principal; 2024-10-02)
PROC: 0B110F4 Bypass Trachea to Cutaneous with Tracheostomy Device, Open Approach (ICD-10-PCS; 2024-10-02)
PROC: 0DH63UZ Insertion of Feeding Device into Stomach, Percutaneous Approach (ICD-10-PCS; 2024-10-09)
DX: A41.9 Sepsis, unspecified organism (principal); N18.6 End stage renal disease; N17.0 Acute kidney failure with tubular necrosis; R65.21 Severe sepsis with septic shock; D65 Disseminated intravascular coagulation [defibrination syndrome]; I21.A1 Myocardial infarction type 2; I50.23 Acute on chronic systolic (congestive) heart failure; K83.1 Obstruction of bile duct; K22.11 Ulcer of esophagus with bleeding; J80 Acute respiratory distress syndrome; R57.0 Cardiogenic shock; J15.1 Pneumonia due to Pseudomonas; K29.71 Gastritis, unspecified, with bleeding; E87.1 Hypo-osmolality and hyponatremia; N39.0 Urinary tract infection, site not specified; E87.3 Alkalosis; I13.2 Hypertensive heart and chronic kidney disease with heart failure and with stage 5 chronic kidney disease, or end stage renal disease; D62 Acute posthemorrhagic anemia; E46 Unspecified protein-calorie malnutrition; E87.0 Hyperosmolality and hypernatremia; Z99.11 Dependence on respirator [ventilator] status; I42.0 Dilated cardiomyopathy; E87.5 Hyperkalemia; E83.51 Hypocalcemia; E87.6 Hypokalemia; I25.10 Atherosclerotic heart disease of native coronary artery without angina pectoris; D50.9 Iron deficiency anemia, unspecified; K76.0 Fatty (change of) liver, not elsewhere classified; D53.9 Nutritional anemia, unspecified; E03.9 Hypothyroidism, unspecified; E78.5 Hyperlipidemia, unspecified; E11.22 Type 2 diabetes mellitus with diabetic chronic kidney disease; E53.8 Deficiency of other specified B group vitamins; I35.0 Nonrheumatic aortic (valve) stenosis; E11.43 Type 2 diabetes mellitus with diabetic autonomic (poly)neuropathy; K31.84 Gastroparesis; G35 Multiple sclerosis; E78.1 Pure hyperglyceridemia; F20.9 Schizophrenia, unspecified; R74.01 Elevation of levels of liver transaminase levels; B96.5 Pseudomonas (aeruginosa) (mallei) (pseudomallei) as the cause of diseases classified elsewhere; K44.9 Diaphragmatic hernia without obstruction or gangrene; Z99.2 Dependence on renal dialysis; I25.2 Old myocardial infarction; Z86.73 Personal history of transient ischemic attack (TIA), and cerebral infarction without residual deficits; Z87.19 Personal history of other diseases of the digestive system; Z93.1 Gastrostomy status; Z95.0 Presence of cardiac pacemaker; Z68.33 Body mass index [BMI] 33.0-33.9, adult
CPT/HCPCS: 31500; 31720; 36415; 36573; 36600; 71045; 74176; 76700; 80048; 80076; 80202; 81003; 82040; 82140; 82248; 82270; 82375; 82436; 82533; 82607; 82746; 82803; 82805; 82962; 83036; 83540; 83550; 83605; 83615; 83735; 83880; 84100; 84132; 84145; 84295; 84443; 84478; 84484; 85014; 85018; 85025; 85027; 85044; 85049; 85384; 86022; 86157; 86705; 86709; 86850; 86880; 86900; 86920; 87070; 87077; 87106; 87186; 87340; 93005; 93306; 93970; 94002; 94003; 94070; 94640; 94664; 94760; 98960; 99291; A4606; C1725; J0282; J0610; J0690; J0692; J0696; J1160; J1171; J1265; J1650; J1720; J1815; J1938; J2003; J2248; J2250; J2270; J2371; J2405; J2470; J2543; J2704; J3010; J3373; J3475; J3480; J3490; J7030; J7040; J7042; J7050; J7060; J7070; P9016; P9034; J0131